=== PATIENT | male | born 1985 | race African-American/Black ===

== ENCOUNTER 2019-03-26 20:27 | Emergency (ER) | payer OTHER ==
[~2019-03-26] VITALS: Ht 172.7 cm; Wt 68.0 kg
[2019-03-26] MEDS ORDERED: TRAZ-257 PO (20:41)
[2019-03-26] MEDS ORDERED: ARIP30TA3 PO (20:42)
--- NOTE | 2019-03-26 20:50 | NUR ---
ERMD AT BEDSIDE FOR HX AND PHYSICAL
--- NOTE | 2019-03-26 20:52 | NUR ---
Patient eloped from facility. ER physician aware.
== END 2019-03-26 21:00 | disposition left against medical advice (07) ==
LOC: EDBD 20:30 → ER 20:30
DX: Z53.21 Procedure and treatment not carried out due to patient leaving prior to being seen by health care provider (principal)
CPT/HCPCS: A4663